=== PATIENT | female | born 1945 | race Caucasian/White ===

== ENCOUNTER 2024-11-11 14:27 | Outpatient (CLI) | payer MEDICARE ==
[~2024-11-11 14:27] MED LIST: Iopamidol 300 61% 100 ML VIAL FS ONE
== END 2024-11-11 14:28 | disposition home or self-care (01) ==
LOC: CSHCT 14:27
PROVIDERS: ATTEND Family Medicine Sports Medicine
DX: R91.8 Other nonspecific abnormal finding of lung field (principal); K44.9 Diaphragmatic hernia without obstruction or gangrene; K76.9 Liver disease, unspecified
CPT/HCPCS: 71260; 82565; Q9967

== ENCOUNTER 2025-06-19 07:17 | Outpatient (CLI) | payer MEDICARE ==
[2025-06-19] MEDS ORDERED: Iopamidol 300 61% 100 ML VIAL FS ONE (10:18)
== END 2025-06-19 07:18 | disposition home or self-care (01) ==
LOC: CSHCT 07:17
PROVIDERS: ATTEND Internal Medicine
DX: C34.12 Malignant neoplasm of upper lobe, left bronchus or lung (principal); R94.5 Abnormal results of liver function studies; Z90.2 Acquired absence of lung [part of]; J90 Pleural effusion, not elsewhere classified; J98.11 Atelectasis; R91.1 Solitary pulmonary nodule; K76.9 Liver disease, unspecified; R18.8 Other ascites
CPT/HCPCS: 71260; 74177